=== PATIENT | male | born 1945 | race Caucasian/White ===

== ENCOUNTER 2018-03-16 07:01 | Day surgery (SDC) | payer MEDICARE, OTHER ==
[2018-03-15 15:08] LABS: BASOPHILS # (AUTO) 0.1 X10'3 (0-0.2); BASOPHILS % (AUTO) 0.8 % (0-1); EOSINOPHILS # (AUTO) 0.4 X10'3 (0-0.9); EOSINOPHILS % (AUTO) 4.3 % (0-6); HEMATOCRIT 42.5 % (42.0-52.0); HEMOGLOBIN 14.3 g/dl (14.0-17.9); LYMPHOCYTES # (AUTO) 1.6 X10'3 (1.1-4.8); LYMPHOCYTES % (AUTO) 17.8 % (21-51); MEAN CORPUSCULAR HEMOGLOBIN 30.1 PG (27.0-31.0); MEAN CORPUSCULAR HGB CONC 33.5 % (33.0-36.5); MEAN CORPUSCULAR VOLUME 89.8 FL (78-98); MEAN PLATELET VOLUME 7.4 FL (7.4-10.4); MONOCYTES # (AUTO) 0.9 X10'3 (0-0.9); MONOCYTES % (AUTO) 10.3 % (2-12); NEUTROPHILS # (AUTO) 5.8 X10'3 (1.8-7.7); NEUTROPHILS % (AUTO) 66.8 % (42-75); PLATELET COUNT 242 X10'3 (140-440); RED BLOOD COUNT 4.73 X10'6 (4.70-6.10); RED CELL DISTRIBUTION WIDTH 14.6 % (11.5-14.5); WHITE BLOOD COUNT 8.7 X10'3 (4.5-11.0)
[2018-03-15 15:21] LABS: PROTHROMBIN TIME 10.5 SECONDS (9.0-12.0)
[2018-03-15 15:31] LABS: ALBUMIN 3.8 G/DL (3.4-5.0); ANION GAP 10 (8-16); BLOOD UREA NITROGEN 22 MG/DL (7-18); BUN/CREATININE RATIO 19.3 (5.4-32.0); CALCIUM 8.8 MG/DL (8.5-10.1); CHLORIDE 102 MMOL/L (99-107); CREATININE 1.14 MG/DL (0.60-1.10); GLUCOSE 90 MG/DL (70-104); SODIUM 140 MMOL/L (135-145); TOTAL CARBON DIOXIDE 28.5 MMOL/L (24-32); eGFR 63 ML/MIN
[~2018-03-16] VITALS: Ht 190.5 cm; Wt 108.0 kg
[2018-03-16] VITALS (19 sets, daily range): BP systolic 92–119; BP diastolic 46–67
[2018-03-16] MEDS ORDERED: diphenhydrAMINE 25mg capsule PO ONE (07:25)
[2018-03-16] MEDS ORDERED: MIDAZolam 5mg/ml 2ml vial IV ONE (07:25)
[2018-03-16] MEDS ORDERED: normal saline 1000ml 1,000 ML IV SCH (07:25)
[2018-03-16] MEDS ORDERED: amiodarone in dextrose, iso-osm 150mg/100ml bag IV ONE (07:25)
[2018-03-16] MEDS ORDERED: LORazepam 0.5 MG tablet PO ONE (07:25)
[2018-03-16] MEDS ORDERED: atropine 0.1mg/ml 10ml syringe IV ONE (07:25)
[2018-03-16] MEDS ORDERED: FISH12002 PO (07:25)
[2018-03-16] MEDS ORDERED: APIX5TAB3 PO (07:25)
[2018-03-16] MEDS ORDERED: morphine 10mg/ml inj. IV ONE (07:25)
[2018-03-16] MEDS ORDERED: ALPR-624 PO (07:25)
[2018-03-16] MEDS ORDERED: SOTA80TA73 PO (07:44)
== END 2018-03-16 13:15 | disposition home or self-care (01) ==
LOC: SSTAY O 07:01
PROVIDERS: ATTEND Internal Medicine Cardiovascular Disease
DX: I48.1 Persistent atrial fibrillation (principal); I48.92 Unspecified atrial flutter; G47.33 Obstructive sleep apnea (adult) (pediatric); M19.90 Unspecified osteoarthritis, unspecified site; Z96.651 Presence of right artificial knee joint; Z79.82 Long term (current) use of aspirin; Z79.899 Other long term (current) drug therapy; Z98.890 Other specified postprocedural states
CPT/HCPCS: 36415; 80048; 85025; 85610; 92960; 93005; J0282; J0461; J2250; J2270; J7030

== ENCOUNTER 2019-12-17 21:35 | Emergency (ER) | payer MEDICARE, OTHER ==
[~2019-12-17] VITALS: Ht 193 cm; Wt 103.6 kg
[~2019-12-17 21:35] MED LIST: ALPR-624 PO; APIX5TAB3 PO; FISH12002 PO; SOTA80TA73 PO
[2019-12-17 21:43] VITALS: BP 135/55
== END 2019-12-17 22:47 | disposition home or self-care (01) ==
LOC: ER 21:36
DX: F41.9 Anxiety disorder, unspecified (principal); U07.1 COVID-19; Z79.01 Long term (current) use of anticoagulants; Z79.899 Other long term (current) drug therapy
CPT/HCPCS: 99282

== ENCOUNTER 2022-10-12 12:36 | Outpatient (CLI) | payer MEDICARE, OTHER | END 2022-10-12 23:59 | disposition home or self-care (01) | LOC: CARD DIAG 12:36 | PROVIDERS: ATTEND Internal Medicine Cardiovascular Disease | DX: I08.8 Other rheumatic multiple valve diseases (principal) | CPT/HCPCS: 93306 ==